=== PATIENT | female | born 1980 | race Caucasian/White ===

== ENCOUNTER 2020-08-07 22:21 | Emergency (ER) | payer MEDICAID ==
[~2020-08-07] VITALS: Ht 157.5 cm; Wt 59.0 kg
[~2020-08-07 22:21] MED LIST: ANAFRANIL75 MG PO; CATAPRES0.1 MG PO; IRON325 M1 PO; LAMOTRIGINE100 MG PO; PRENATAL VITAM1 EAC7 PO; PROMETHAZINE HC25 M1 PO; PROTONIX40 MG PO; PROZAC20 MG PO
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
--- NOTE | 2020-08-08 19:13 | EKG ---
[facility] [address] [facility] [place], [place] [address] Signed Normal sinus rhythm Low voltage QRS Cannot rule out Anteroseptal infarct , age undetermined Abnormal ECG No previous ECGs available Confirmed by PAMELA LOWERY MD ([id number]) on 08/08/2020 7:12:58 PM Electronically Signed By: PAMELA LOWERY MD 08/08/201912 PATIENT NAME: GERARDO GALLAGHERPedrito Velázquez Electrocardiogram DATE OF : 76 PHYSICIAN: PAMELA LOWERY MD REPORT #: [id number] REPORT IS CONFIDENTIAL AND NOT TO BE RELEASED WITHOUT AUTHORIZATION
== END 2020-08-08 01:41 | disposition home or self-care (01) ==
LOC: ED 22:21
DX: F10.129 Alcohol abuse with intoxication, unspecified (principal); R00.2 Palpitations; F17.200 Nicotine dependence, unspecified, uncomplicated; Z79.899 Other long term (current) drug therapy; Y90.8 Blood alcohol level of 240 mg/100 ml or more
CPT/HCPCS: 71045; 80053; 83735; 84484; 84703; 85025; 93005; 93010; 99285-25